=== PATIENT | female | born 1985 | race Caucasian/White ===

== ENCOUNTER 2018-11-30 18:13 | Emergency (ER) | payer SELFPAY ==
--- NOTE | 2018-11-30 18:16 | ED Physician Documentation ---
General Adult - HISTORIAN Historian: patient - HPI Stated Complaint: chest pain Chief Complaint: General Adult Timing: still present Severity: moderate Further Comments: yes (Pt is a 33 yo female with chest pain. Pt has hx Lupus Anticoagulopathy and had been on coumadin, but stopped taking it about a year ago. Pt presents with tachycardia. She says that she is sob and has been very nauseated. Pt is a smoker. She does not take control pills, and has had a BTL. Pt also has hx anxiety.) - ROS CONST: no problems EYES/ENT: none CVS/RESP: chest pain, shortness of breath GI/: nausea MS/SKIN/LYMPH: other (tenderness L breast) NEURO/PSYCH: anxiety - PAST HX Past History: other (anxiety/depression, Lupus anticoagulopathy, ) Surgeries/Procedures: BTL, Allergies/Adverse Reactions: Allergies Allergy/AdvReac Type Severity Reaction Status Date / Time ciprofloxacin [From Cipro] Allergy Weakness Verified 11/30/18 18:43 hydrocodone Allergy Vomiting Verified 11/30/18 18:43 Home Medications: Ambulatory Orders Medication Instructions Recorded Aspirin [Rudy] 325 mg PO D 11/30/18 - SOCIAL HX Smoking History: cigarettes - FAMILY HX Family History: No - REVIEWED ASSESSMENTS Nursing Assessment Reviewed: Yes Vitals Reviewed: Yes Progress - Progress Progress: CT pulmonary angiogram Clinical history: Chest pain. History of lupus. Contrast administered: 95 mL Technique: CT pulmonary angiography is performed with intravenous infusion of contrast. Sagittal and coronal reconstructions were performed by the technologist. Findings: There is dependent atelectasis in the lungs. There is no pleural effusion or significant pleural thickening. The central airways are patent. Vascular structures enhance normally. There is no filling defect in the pulmonary arteries or vascular cutoff to suggest a diagnosis of pulmonary emb olus. There is no mediastinal or hilar mass or significant adenopathy. Impression: 1. No pulmonary embolus. 1 L NS in ER Rx Ativan 0.5 mg q8h prn #30. f/u local provider. General Adult Physical Exam - PHYSICAL EXAM GENERAL APPEARANCE: anxious EENT: eye inspection normal, ENT inspection normal, pharynx normal NECK: normal inspection, supple RESPIRATORY: no resp distress, chest non-tender, breath sounds normal CVS: tachycardia ABDOMEN: soft, no organomegaly, normal bowel sounds BACK: normal inspection, no CVA tenderness SKIN: other (tender 1 cm mass L breast) EXTREMITIES: non-tender, normal range of motion, no evidence of injury NEURO: oriented X3, CN's nml as tested, motor nml, sensation nml, other (anxious) Discharge Clincal Impression: hx coagulopathy, Mild dehydration, anxiety Referrals: Primary Doctor,No [Primary Care Provider] - Condition: Stable Disposition: 01 HOME, SELF-CARE Decision to Admit: NO Decision Time: 21:56
[2018-11-30 18:42] LABS: MEAN CORPUSCULAR HEMOGLOBIN 33.7 pg (28.0-34.0)
[2018-11-30 18:43] LABS: BASOPHILS % 1.1 (0.0-1.5); EOSINOPHILS % 2.4 % (0.0-6.8); MONOCYTES % 7.6 % (0.0-11.0); NEUTROPHILS # 8.2 # k/uL (1.4-7.7)
[2018-11-30 18:49] LABS: eGFR (Non-African) > 60
[2018-11-30] MEDS ORDERED: 0.9 % SODIUM CHLORIDE 1,000 ML IV ONE (19:48)
--- NOTE | 2018-11-30 21:49 | Diagnostic Imaging Report ---
ANNA NUÑEZ [facility] [address] [facility] [address] [place] [address]. [id number] Report Submission Date: Nov 30, 2018 9:42:20 PM BASKETBALL ASSEMBLER Patient Study Name: HOME TSE Date: Nov 30, 2018 9:12:04 PM BASKETBALL ASSEMBLER Modality Type: CT\SR Gender: F Description: CT PE CHEST : 85 Institution: [facility] Physician: ANNA NUÑEZ CT pulmonary angiogram Clinical history: Chest pain. History of lupus. Contrast administered: 95 mL Technique: CT pulmonary angiography is performed with intravenous infusion of contrast. Sagittal and coronal reconstructions were performed by the technologist. Findings: There is dependent atelectasis in the lungs. There is no pleural effusion or significant pleural thickening. The central airways are patent. Vascular structures enhance normally. There is no filling defect in the pulmonary arteries or vascular cutoff to suggest a diagnosis of pulmonary embolus. There is no mediastinal or hilar mass or significant adenopathy. Impression: 1. No pulmonary embolus. Electronically signed on Nov 30, 2018 9:42:20 PM BASKETBALL ASSEMBLER by: Vin MYERS
--- NOTE | 2018-11-30 21:50 | Diagnostic Imaging Report ---
ANNA NUÑEZ [facility] [address] [facility] [address] [id number] Report Submission Date: Nov 30, 2018 7:09:41 PM DONOR RELATIONS MANAGER Patient Study Name: HOME TSE Date: Nov 30, 2018 6:45:16 PM DONOR RELATIONS MANAGER Modality Type: DX Gender: F Description: CHEST 2VIEW : 85 Institution: [facility] Physician: ANNA NUÑEZ Chest two views History: Chest pain. Smoker. Findings: Dextroconvex thoracic scoliosis and hyperinflation are observed without evidence of pneumonia or pleural effusion. Heart size and pulmonary vascularity are normal. Impression: Hyperinflation and scoliosis. Electronically signed on Nov 30, 2018 7:09:41 PM DONOR RELATIONS MANAGER by: Lul MYERS
[2018-11-30 22:23] VITALS: BP 112/63
== END 2018-11-30 22:25 | disposition home or self-care (01) ==
LOC: ED 18:13
DX: F41.9 Anxiety disorder, unspecified (principal); E86.0 Dehydration; Z79.01 Long term (current) use of anticoagulants; Z72.0 Tobacco use
CPT/HCPCS: 36415; 71046; 71275; 80053; 82550; 82553; 84484; 85025; 85379; 85610; 85730; 93005; 96360; 99284; 99285; J7030; Q9967; S1016